=== PATIENT | female | born 1985 | race African-American/Black ===

== ENCOUNTER 2020-03-25 11:42 | Inpatient (IN) | payer MEDICAID, OTHER ==
[~2020-03-25] VITALS: Ht 165.1 cm; Wt 87.0 kg
[2020-03-25] MEDS ORDERED: SODIUM CHLORIDE 0.9% 500 ML IVB ONE (11:47)
[2020-03-25] MEDS ORDERED: PANTOPRAZOLE 40 MG/10 ML VIAL INJ IV STA (11:47)
[2020-03-25] MEDS ORDERED: MORPHINE SULFATE 4 MG/ML SYR/VIAL IV ONE (12:00)
[2020-03-25] MEDS ORDERED: ONDANSETRON HCL 4 MG/2 ML VIAL IV ONE (12:00)
[2020-03-25] MEDS ORDERED: FLEET ENEMA(ADULT) 135 ML PR ONE (12:00)
[2020-03-25] MEDS ORDERED: diphenhdrAMINE HCL 50 MG/1 ML VL ONE (13:45)
[2020-03-25] MEDS ORDERED: PRAZOSIN HCL 1 MG CAP PO ONE (13:45)
[2020-03-25] MEDS ORDERED: NITROGLYCERIN 0.4 MG SL TAB SL PRN (15:15)
[2020-03-25] MEDS ORDERED: LORazepam 0.5 MG TAB PO PRN (15:15)
[2020-03-25] MEDS ORDERED: POLYETHYLENE GLYCOL 17 GM PWDR PO PRN (15:15)
[2020-03-25] MEDS ORDERED: LABETALOL HCL 5 MG/ML 4ML SYRINGE IV PRN (15:15)
[2020-03-25] MEDS ORDERED: MORPHINE SULF INJ 2 MG/ML SYRINGE 1ML IV PRN ×2 (15:15)
[2020-03-25] MEDS ORDERED: ACETAMINOPHEN 500 MG TAB PO PRN (15:15)
[2020-03-25 16:37] LABS: INR 1.01 (0.9-1.15)
[2020-03-25 16:37] LABS: Basophils # (auto) 0.1 10 ^3/uL (0-0.2); Basophils % (auto) 0.6 % (0.0-2.0); Eosinophils # (auto) 0 10 ^3/uL (0-0.8); Eosinophils % (auto) 0.2 % (0.0-7.0); Hematocrit 42.4 % (36.0-46.0); Hemoglobin 13.9 g/dL (12.2-16.2); Lymphocytes # (auto) 2.7 10 ^3/uL (0.4-5.4); Lymphocytes % (auto) 19.2 % (10.0-50.0); Mean Corpuscular Hemoglobin 31.3 pg (28.0-32.0); Mean Corpuscular Hgb Conc. 32.9 g/dL (32.0-36.0); Mean Corpuscular Volume 95.1 fL (80.0-100.0); Monocytes # (auto) 1.1 10 ^3/uL (0-1.3); Monocytes % (auto) 8.3 % (0.0-12.0); Neutrophils # (auto) 9.9 10 ^3/uL (1.6-8.6); Neutrophils % (auto) 71.7 % (37.0-80.0); Platelet Count (auto) 233 10^3/uL (140-450); Red Blood Cells 4.45 10^6/uL (4.0-5.20); White Blood Cell 13.8 10^3/uL (4.4-10.8)
[2020-03-25] MEDS: LACTULOSE 20Gm/30ML SOLN PO PRN (16:45)
[2020-03-25 16:52] LABS: Calcium 9.1 mg/dL (8.5-10.1); Potassium 3.5 mmol/L (3.5-5.1)
[2020-03-25 16:56] LABS: BUN/Creatinine Ratio 7.9; Bilirubin, Total 0.5 mg/dL (0.2-1.0); Total Protein 8.3 g/dL (6.4-8.2)
[2020-03-25 17:22] LABS: Alcohol, Urine < 3.0 mg/dL (0-10); Amphetamine Screen, Urine NEGATIVE (NEGATIVE); Barbiturate Scree,Urine NEGATIVE (NEGATIVE); Benzodiazephine Screen, Urine NEGATIVE (NEGATIVE); Cannabinoid Screen, Urine POSITIVE (NEGATIVE); Cocaine Screen, Urine NEGATIVE (NEGATIVE); Opiate Scree,Urine POSITIVE (NEGATIVE); Phencyclidine Screen, Urine NEGATIVE (NEGATIVE)
--- NOTE | 2020-03-25 17:25 | NUR ---
MS admit from ER NIGEL BUENROSTRO admitted to [facility] after SBAR received. Patient oriented to Pamela Levin, primary RN, unit, room, bed, and unit policies regarding patient care and visiting hours. No s/s of distress or SOB. Patient complains of 10/10 abdominal pain, will medicate per MD orders. Updated on POC and instructed to call for assistance as needed. Bed locked in lowest position, side rails up x2, call light within reach. Will continue to monitor.
[2020-03-25] MEDS ORDERED: ALBUTEROL SULF 2.5 MG/0.5ML(0.5%) NEB SOLN NEB PRN (18:00)
[2020-03-25] MEDS ORDERED: TRAM50TA2 PO (18:11)
[2020-03-25] MEDS ORDERED: ONDA-144 PO (18:11)
[2020-03-25] MEDS ORDERED: DOCU100T15 PO (18:11)
[2020-03-25] MEDS: PANTOPRAZOLE 40 MG TAB PO SCH (21:21)
[2020-03-25] MEDS ORDERED: BUDESONIDE (INHALATION) 0.5 MG/2 ML NEB NEB SCH (22:00)
[2020-03-25 22:13] VITALS: BP 112/65
[2020-03-26 04:52] VITALS: BP 104/66
[2020-03-26 04:58] LABS: Urine Bacteria FEW /hpf (None Seen); Urine Blood Negative /uL (Negative); Urine Mucus FEW (None Seen); Urine Specific Gravity 1.034 (1.001-1.035); Urine WBC 6 /hpf (0 - 5)
[2020-03-26 05:41] LABS: Basophils # (auto) 0.1 10 ^3/uL (0-0.2); Basophils % (auto) 1.2 % (0.0-2.0); Eosinophils # (auto) 0.1 10 ^3/uL (0-0.8); Hematocrit 37.7 % (36.0-46.0); Hemoglobin 12.7 g/dL (12.2-16.2); Lymphocytes # (auto) 3.4 10 ^3/uL (0.4-5.4); Lymphocytes % (auto) 40.5 % (10.0-50.0); Mean Corpuscular Hemoglobin 32.1 pg (28.0-32.0); Mean Corpuscular Hgb Conc. 33.6 g/dL (32.0-36.0); Mean Corpuscular Volume 95.4 fL (80.0-100.0); Monocytes # (auto) 0.6 10 ^3/uL (0-1.3); Monocytes % (auto) 6.9 % (0.0-12.0); Neutrophils # (auto) 4.2 10 ^3/uL (1.6-8.6); Neutrophils % (auto) 50.4 % (37.0-80.0); Nucleated Red Blood Cells % 0.1 %; Platelet Count (auto) 261 10^3/uL (140-450); Red Blood Cells 3.96 10^6/uL (4.0-5.20); Red Cell Distribution Width 14.1 % (11.8-14.3); White Blood Cell 8.4 10^3/uL (4.4-10.8)
--- NOTE | 2020-03-26 08:25 | NUR ---
Opening Shift Note Assumed care of patient, awake and alert. No S/S of distress/SOB or pain. Updated on POC and instructed to call for assistance as needed. Bed locked in lowest position, side rails up x2, call light within reach. Will continue to monitor.
[2020-03-26 09:00] VITALS: BP 117/54
[2020-03-26] MEDS ORDERED: SODIUM CHLORIDE LOCK 10 ML ONE (09:10)
[2020-03-26] MEDS ORDERED: LIDOCAINE VISCOUS 2% 15ML UD ONE (09:10)
[2020-03-26] MEDS ORDERED: diphenhdrAMINE HCL 50 MG/1 ML VL ONE (09:11)
[2020-03-26] MEDS: DOCUSATE CALCIUM 240 MG CAP PO SCH (09:29)
[2020-03-26] MEDS: PANTOPRAZOLE 40 MG TAB PO SCH (09:29)
--- NOTE | 2020-03-26 09:47 | NUR ---
OR PROCEDURE Patient was taken down to OR no signs of distress.
[2020-03-26] MEDS: fentaNYL CITRATE 100 MCG/2 ML VL ONE ×2 (10:09→10:12)
[2020-03-26] MEDS: MIDAZOLAM HCL 5 MG/ML-1ML VIAL ONE ×2 (10:09→10:12)
--- NOTE | 2020-03-26 10:47 | NUR ---
Patient down at OR Addendum: 03/26/20 at 1048 by JOSE JONES RN RN Amended: Links added.
--- NOTE | 2020-03-26 11:34 | NUR ---
Returned Patient returned no signs of distress , relaxing. Will continue to monitor
[2020-03-26 13:00] VITALS: BP 118/67
--- NOTE | 2020-03-26 14:09 | NUR ---
Nutrition Assessment Notes Please refer to link for full assessment notes. Est Energy needs: 3622-9060 kcals (17-20 kcal/kgBW) Est Protein needs: 68-85 gms/day (0.8-1.0 gm/kgBW) Will continue to monitor and reassess prn. Addendum: 03/26/20 at [address] Amended: Links added.
[2020-03-26 16:10] VITALS: BP 121/64
[2020-03-26] MEDS: LACTULOSE 20Gm/30ML SOLN PO PRN (16:35)
--- NOTE | 2020-03-26 19:15 | NUR ---
Received report re. pt who is currently sitting up crosslegged in bed. States, "I am good, " when nurse greeted her. Denies discomfort or pain. No s/sx of resp distress. Bed in low position. HOB semi-[employer]. Nurse call light within pt reach.
[2020-03-26 22:00] VITALS: BP 102/59
[2020-03-27 05:11] VITALS: BP 102/57
--- NOTE | 2020-03-27 07:50 | NUR ---
Opening Note Assumed pt care from THERESA RN. PT is a/ox4 with no s/s of distress or SOB. Pt is currently laying in bed with no complaints at this time. Discussed POC with pt. Safety measures maintained with call light within reach, bed in lowest position and side rails up. Will continue to monitor for changes.
[2020-03-27 09:00] VITALS: BP 114/69
[2020-03-27 09:26] LABS: Basophils # (auto) 0.1 10 ^3/uL (0-0.2); Basophils % (auto) 2.4 % (0.0-2.0); Eosinophils # (auto) 0.1 10 ^3/uL (0-0.8); Eosinophils % (auto) 1.7 % (0.0-7.0); Hematocrit 39.9 % (36.0-46.0); Hemoglobin 13.3 g/dL (12.2-16.2); Lymphocytes # (auto) 2.6 10 ^3/uL (0.4-5.4); Lymphocytes % (auto) 41.9 % (10.0-50.0); Mean Corpuscular Hemoglobin 31.7 pg (28.0-32.0); Mean Corpuscular Hgb Conc. 33.3 g/dL (32.0-36.0); Mean Corpuscular Volume 95.3 fL (80.0-100.0); Monocytes # (auto) 0.5 10 ^3/uL (0-1.3); Monocytes % (auto) 7.6 % (0.0-12.0); Neutrophils # (auto) 2.8 10 ^3/uL (1.6-8.6); Neutrophils % (auto) 46.4 % (37.0-80.0); Nucleated Red Blood Cells % 0.1 %; Platelet Count (auto) 250 10^3/uL (140-450); Red Blood Cells 4.19 10^6/uL (4.0-5.20); Red Cell Distribution Width 14.1 % (11.8-14.3); White Blood Cell 6.1 10^3/uL (4.4-10.8)
[2020-03-27 09:40] LABS: Albumin 3.2 g/dL (3.4-5.0); Calcium 8.4 mg/dL (8.5-10.1); Potassium 3.8 mmol/L (3.5-5.1)
[2020-03-27 09:44] LABS: BUN/Creatinine Ratio 7.5; Bilirubin, Total 0.3 mg/dL (0.2-1.0); Total Protein 6.9 g/dL (6.4-8.2)
[2020-03-27] MEDS: DOCUSATE CALCIUM 240 MG CAP PO SCH (09:48)
--- NOTE | 2020-03-27 09:50 | NUR ---
Dr Lai at Bedside MD to see pt. Plans to d/c pt home today. Will implement and continue to monitor.
[2020-03-27 10:00] VITALS: BP 114/69
--- NOTE | 2020-03-27 10:14 | NUR ---
IV D/C'ed IV to pt's R hand d/c'ed. Catheter was removed fully intact, site is asymptomatic. Pressure was applied to site for 3 minutes with gauze and then wrapped in coban. Pt instructed to keep dressing on for 30 minutes; pt verbalized understanding.
--- NOTE | 2020-03-27 11:26 | NUR ---
Pt D/C'ed Off Unit Pt ambulated off unit. Pt is a/ox4 with no s/s of distress or SOB. Pt provided all education material, all questions were answered and pt aware of need to follow up with her primary MD. IV was d/c'ed prior to d/c.
== END 2020-03-27 11:27 | disposition home or self-care (01) | DRG 254 ==
LOC: EDBD 11:42 → ER 11:42 → WEST WING 11:43
PROC: 0DJ08ZZ Inspection of Upper Intestinal Tract, Via Natural or Artificial Opening Endoscopic (ICD-10-PCS; principal; 2020-03-26 10:07)
DX: K59.00 Constipation, unspecified (principal); I10 Essential (primary) hypertension; J45.909 Unspecified asthma, uncomplicated; F17.210 Nicotine dependence, cigarettes, uncomplicated; Z80.9 Family history of malignant neoplasm, unspecified; Z90.49 Acquired absence of other specified parts of digestive tract; Z20.828 Contact with and (suspected) exposure to other viral communicable diseases; Z01.812 Encounter for preprocedural laboratory examination; K92.1 Melena
CPT/HCPCS: 36415; 43235; 71046; 74176; 80053; 80307; 81001; 81025; 83690; 84702; 85025; 85610; 87081; 87426; 96374; C9113; G0378; J2250; J2405

== ENCOUNTER → 2020-04-26 | Emergency (ER) | payer MEDICAID ==
[~2020-04-26] VITALS: Ht 167.6 cm; Wt 83.9 kg
[~2020-04-26] MED LIST: DOCU100T15 PO; LORazepam 2MG/ML-1ML VIAL IV ONE; ONDA-144 PO; TRAM50TA2 PO
[2020-04-26 12:05] LABS: Basophils # (auto) 0.1 10 ^3/uL (0-0.2); Basophils % (auto) 0.5 % (0.0-2.0); Eosinophils # (auto) 0 10 ^3/uL (0-0.8); Hemoglobin 13.8 g/dL (12.2-16.2); Lymphocytes # (auto) 1.4 10 ^3/uL (0.4-5.4); Lymphocytes % (auto) 14.1 % (10.0-50.0); Mean Corpuscular Hemoglobin 31.2 pg (28.0-32.0); Mean Corpuscular Hgb Conc. 33.7 g/dL (32.0-36.0); Mean Corpuscular Volume 92.7 fL (80.0-100.0); Monocytes # (auto) 0.2 10 ^3/uL (0-1.3); Monocytes % (auto) 2.2 % (0.0-12.0); Neutrophils # (auto) 8.2 10 ^3/uL (1.6-8.6); Neutrophils % (auto) 83.2 % (37.0-80.0); Platelet Count (auto) 334 10^3/uL (140-450); Red Blood Cells 4.42 10^6/uL (4.0-5.20); Red Cell Distribution Width 13.9 % (11.8-14.3); White Blood Cell 9.8 10^3/uL (4.4-10.8)
[2020-04-26 12:28] LABS: Albumin 4.2 g/dL (3.4-5.0); Calcium 9.6 mg/dL (8.5-10.1)
[2020-04-26 12:31] LABS: BUN/Creatinine Ratio 12.2; Bilirubin, Total 0.7 mg/dL (0.2-1.0); Total Protein 8.6 g/dL (6.4-8.2)
[2020-04-26 12:49] LABS: Urine Bacteria FEW /hpf (None Seen); Urine Blood Negative /uL (Negative); Urine Mucus FEW (None Seen); Urine Specific Gravity 1.033 (1.001-1.035); Urine WBC 4 /hpf (0 - 5)
[2020-04-26 14:09] LABS: Amphetamine Screen, Urine NEGATIVE (NEGATIVE); Barbiturate Scree,Urine NEGATIVE (NEGATIVE); Benzodiazephine Screen, Urine NEGATIVE (NEGATIVE); Cannabinoid Screen, Urine POSITIVE (NEGATIVE); Cocaine Screen, Urine NEGATIVE (NEGATIVE); Opiate Scree,Urine NEGATIVE (NEGATIVE); Phencyclidine Screen, Urine NEGATIVE (NEGATIVE)
[2020-04-26 16:58] VITALS: BP 123/84
== END | disposition home or self-care (01) ==
LOC: EDUNIT# 10:18 → EDBD 10:28 → ER 10:28
DX: R10.32 Left lower quadrant pain (principal); I10 Essential (primary) hypertension; R11.10 Vomiting, unspecified; F12.90 Cannabis use, unspecified, uncomplicated; R73.9 Hyperglycemia, unspecified; Z90.49 Acquired absence of other specified parts of digestive tract; Z79.899 Other long term (current) drug therapy
CPT/HCPCS: 36415; 74176; 80053; 80307; 81001; 84702; 85025; 96374; 99285; J2060; J7030